=== PATIENT | female | born 1950 | race Asian ===

== ENCOUNTER 2018-04-18 23:37 | Emergency (ER) | payer SELFPAY ==
[~2018-04-18] VITALS: Ht 152.4 cm; Wt 46.9 kg
[2018-04-18 23:40] VITALS: Ht 152.4 cm; Wt 46.9 kg
[2018-04-19 01:01] VITALS: BP 136/70
== END 2018-04-19 01:01 | disposition home or self-care (01) ==
LOC: ED 23:37
DX: S61.211A Laceration without foreign body of left index finger without damage to nail, initial encounter (principal); W26.0XXA Contact with knife, initial encounter; I10 Essential (primary) hypertension; Y93.89 Activity, other specified; Y92.89 Other specified places as the place of occurrence of the external cause; Y99.8 Other external cause status
CPT/HCPCS: 90715

== ENCOUNTER 2018-04-22 11:06 | Emergency (ER) | payer SELFPAY ==
[~2018-04-22] VITALS: Ht 152.4 cm; Wt 47.2 kg
[2018-04-22 11:24] VITALS: Ht 152.4 cm; Wt 47.2 kg
[2018-04-22 12:17] VITALS: BP 126/75
== END 2018-04-22 12:17 | disposition home or self-care (01) ==
LOC: ED 11:06
DX: S61.201D Unspecified open wound of left index finger without damage to nail, subsequent encounter (principal); X58.XXXD Exposure to other specified factors, subsequent encounter; I10 Essential (primary) hypertension